=== PATIENT | female | born 1965 | race Caucasian/White ===

== ENCOUNTER 2018-05-22 07:15 | Emergency (ER) | payer OTHER ==
[2018-05-22 07:42] LABS: URINE BLOOD (Dip) POC 3+ (NEGATIVE); URINE GLUCOSE (Dip) POC >=1.0% (NEGATIVE); URINE KETONES (Dip) POC 2+ (NEGATIVE); URINE LEUKOCYTE EST (Dip) POC 3+ (NEGATIVE); URINE NITRITE (Dip) POC Negative (NEGATIVE); URINE TOTAL PROTEIN POC 3+ (NEGATIVE)
[2018-05-22 07:42] LABS: URINE PH (Dip) POC 5.5 (5.0-8.5)
[2018-05-22] MEDS: LIDOCAINE 1% (MDV) 10 ML INJ INJ (08:08)
[2018-05-22] MEDS: CEFTRIAXONE 1 GM INJ IM (08:08)
== END 2018-05-22 08:51 | disposition home or self-care (01) ==
LOC: FTE 07:15
DX: N39.0 Urinary tract infection, site not specified (principal); I10 Essential (primary) hypertension; E11.9 Type 2 diabetes mellitus without complications; Z79.84 Long term (current) use of oral hypoglycemic drugs
CPT/HCPCS: 81003; 87086; 96372; 99284-25

== ENCOUNTER 2019-06-16 20:41 | Emergency (ER) | payer OTHER ==
[2019-06-16] MEDS: hydrALAzine 20 MG INJ IV (21:35)
[2019-06-16 21:48] LABS: ADD MAN DIFF? NO; BASOPHILS % 0.4 % (0.0-2.0); EOSINOPHILS # 0.4 10^3/ul (0.0-0.5); EOSINOPHILS % 5.4 % (0.0-7.0); HEMATOCRIT 32.7 % (37.0-47.0); HEMOGLOBIN 11.8 g/dl (12.0-16.0); LYMPHOCYTES # 2.9 10^3/ul (0.8-2.9); LYMPHOCYTES % 40.7 % (15.0-51.0); MEAN CORPUSCULAR HEMOGLOBIN 30.3 pg (29.0-33.0); MEAN CORPUSCULAR HGB CONC 36.1 g/dl (32.0-37.0); MEAN CORPUSCULAR VOLUME 83.8 fl (82.0-101.0); MEAN PLATELET VOLUME 8.9 fl (7.4-10.4); MONOCYTE # 0.7 10^3/ul (0.3-0.9); MONOCYTES % 9.5 % (0.0-11.0); NEUTROPHIL # 3.1 10^3/ul (1.6-7.5); NEUTROPHILS % 43.7 % (39.0-77.0); PLATELET COUNT 182 10^3/UL (140-415); RED CELL DISTRIBUTION WIDTH 11.5 % (11.5-14.5)
[2019-06-16 21:48] LABS: WHITE BLOOD COUNT 7.1 10^3/ul (4.8-10.8)
[2019-06-16 22:12] LABS: ANION GAP 7 (5-13); BLOOD UREA NITROGEN 8 mg/dl (7-20); CALCIUM 9.3 mg/dl (8.4-10.2); CARBON DIOXIDE 29 mmol/L (21-31); CHLORIDE 94 mmol/L (97-110); Estimated GFR > 60 mL/min (>60); GLUCOSE 111 mg/dl (70-220); POTASSIUM 3.5 mmol/L (3.5-5.1); SODIUM 130 mmol/L (135-144)
[2019-06-16 22:16] LABS: PT RATIO 1.1
[2019-06-16 22:23] LABS: TROPONIN-I < 0.012 ng/ml (0.000-0.120)
[2019-06-16 22:38] LABS: INR 1.02; PARTIAL THROMBOPLASTIN TIME 29.4 Sec (23.0-35.0); PROTIME 13.5 Sec (11.9-14.9)
[2019-06-17] MEDS ORDERED: ONDANSETRON 4 MG INJ IV ×2 (02:00→02:30)
[2019-06-17] MEDS ORDERED: ACETAMINOPHEN 325 MG TAB PO ×2 (02:00→02:30)
[2019-06-17] MEDS ORDERED: BISACODYL (EC) 5 MG TAB PO (02:30)
[2019-06-17] MEDS ORDERED: morphine 2 MG INJ IV (02:30)
[2019-06-17] MEDS ORDERED: DOCUSATE SODIUM 100 MG CAP PO (02:30)
[2019-06-17] MEDS ORDERED: NACL 0.9% 3 ML SYG IV (02:30)
[2019-06-17] MEDS ORDERED: NITROGLYCERIN (SL) 0.4 MG TAB SL (02:30)
[2019-06-17] MEDS ORDERED: GLUCOSE GEL 15 GRAM TUBE BUCCAL (03:00)
[2019-06-17] MEDS ORDERED: GLUCOSE GEL 15 GRAM TUBE PO ×2 (03:00)
[2019-06-17] MEDS ORDERED: GLUCAGON 1 MG INJ IM (03:00)
[2019-06-17] MEDS ORDERED: DEXTROSE 50% 50 ML SYRINGE IV ×2 (03:00)
[2019-06-17 03:54] LABS: CREATINE KINASE 72 IU/L (23-200)
[2019-06-17 04:07] LABS: CK INDEX 1.4; CK-MB 0.98 ng/ml (0.0-2.4); TROPONIN-I < 0.012 ng/ml (0.000-0.120)
[2019-06-17] MEDS: SOD CHLORIDE 0.9% 500 ML IV (04:21)
[2019-06-17 06:04] LABS: ADD MAN DIFF? NO
[2019-06-17 06:06] LABS: BASOPHILS % 0.4 % (0.0-2.0); EOSINOPHILS # 0.3 10^3/ul (0.0-0.5); EOSINOPHILS % 4.9 % (0.0-7.0); HEMATOCRIT 34.6 % (37.0-47.0); HEMOGLOBIN 12.5 g/dl (12.0-16.0); LYMPHOCYTES # 1.9 10^3/ul (0.8-2.9); MEAN CORPUSCULAR HEMOGLOBIN 30.6 pg (29.0-33.0); MEAN CORPUSCULAR HGB CONC 36.1 g/dl (32.0-37.0); MEAN CORPUSCULAR VOLUME 84.6 fl (82.0-101.0); MONOCYTE # 0.5 10^3/ul (0.3-0.9); MONOCYTES % 7.6 % (0.0-11.0); NEUTROPHILS % 58.8 % (39.0-77.0); PLATELET COUNT 210 10^3/UL (140-415); RED BLOOD COUNT 4.09 10^6/ul (4.20-5.40); RED CELL DISTRIBUTION WIDTH 11.7 % (11.5-14.5)
[2019-06-17 06:06] LABS: WHITE BLOOD COUNT 6.8 10^3/ul (4.8-10.8)
[2019-06-17 06:24] LABS: IRON 82 ug/dl (35-150)
[2019-06-17 06:27] LABS: ALANINE AMINOTRANSFERASE 23 IU/L (13-69); ALBUMIN 4.1 g/dl (3.3-4.9); ALBUMIN/GLOBULIN RATIO 1.24; ALKALINE PHOSPHATASE 105 IU/L (42-121); ANION GAP 7 (5-13); ASPARTATE AMINO TRANSFERASE 21 IU/L (15-46); BILIRUBIN,INDIRECT 0.8 mg/dl (0-1.1); BILIRUBIN,TOTAL 0.8 mg/dl (0.2-1.3); BLOOD UREA NITROGEN 5 mg/dl (7-20); CALCIUM 9.3 mg/dl (8.4-10.2); CARBON DIOXIDE 27 mmol/L (21-31); CHLORIDE 106 mmol/L (97-110); CHOL/HDL RATIO 3.4 RATIO; CHOLESTEROL 160 mg/dl (100-200); CREATININE 0.37 mg/dl (0.44-1.00); Estimated GFR > 60 mL/min (>60); GLUCOSE 138 mg/dl (70-220); HDL CHOLESTEROL 46 mg/dl (37-92); LDL CHOLESTEROL,CALCULATED 91 mg/dl; SODIUM 140 mmol/L (135-144); TOTAL PROTEIN 7.4 g/dl (6.1-8.1); TRIGLYCERIDES 113 mg/dl (0-149)
[2019-06-17 06:34] LABS: % IRON SATURATION 25 % SAT (22-52); TOTAL IRON BINDING CAPACITY 332 ug/dl (241-421)
[2019-06-17] MEDS: ASPIRIN 81 MG TAB PO (10:44)
[2019-06-17] MEDS: BENAZEPRIL 40 MG TAB PO (10:45)
[2019-06-17 10:53] LABS: CREATINE KINASE 60 IU/L (23-200)
[2019-06-17] MEDS: INSULIN GLARGINE [LANTus] (100 UNITS/ML) SYG SC (10:54)
[2019-06-17] MEDS: INSULIN ASPART [NOVOLOG] 3 ML PEN SC ×3 (10:55→12:51)
[2019-06-17 11:07] LABS: CK INDEX 1.3; CK-MB 0.76 ng/ml (0.0-2.4); TROPONIN-I < 0.012 ng/ml (0.000-0.120)
[2019-06-17] MEDS: GABAPENTIN 100 MG CAP PO (12:47)
[2019-06-17] MEDS ORDERED: ATORVASTATIN 10 MG TAB PO (21:00)
[2019-06-18] MEDS ORDERED: ACCU-CHEK XX (02:00)
== END 2019-06-17 14:40 | disposition home or self-care (01) ==
LOC: E/R 20:41
DX: R07.9 Chest pain, unspecified (principal); I10 Essential (primary) hypertension; E11.9 Type 2 diabetes mellitus without complications; Z79.4 Long term (current) use of insulin
CPT/HCPCS: 36415; 70450; 71045; 80048; 80053; 80061; 82306; 82550; 82553; 82607; 82652; 82728; 82962; 83036; 83540; 83735; 84443; 84484; 85025; 85610; 85730; 93005; 93306; 96372; 96374; 99285-25